=== PATIENT | male | born 1970 | race Caucasian/White ===

== ENCOUNTER 2020-07-31 07:11 | Day surgery (SDC) | payer BC ==
[~2020-07-31] VITALS: Ht 182.9 cm; Wt 108.6 kg
[~2020-07-31 07:11] MED LIST: ALL DAY ALLERGY10 M3 PO; FENOFIBRATE54 MG PO; FISH OIL 1,0001 EAC3 PO; LEXAPRO10 MG PO; METFORMIN HCL500 M3 PO; SIMVASTATIN40 MG PO; VALTREX500 MG PO; VITAMIN D250 MC1 PO; ZESTRIL2.5 MG PO
--- NOTE | 2020-07-31 09:01 | NUR ---
07/31/20 0901 Gabriela Hernandez 0838 PATIENT ARRIVES TO PACU SLEEPING. RESP EVEN AND UNLABORED, NC AT 2 LITERS. PATIENT AWAKENS WITH VERBAL STIMULI, DENIES PAIN OR NAUSEA. BACK TO SLEEP WHEN NOT STIMULATED. PASSING GAS.
--- NOTE | 2020-07-31 09:42 | OR ---
[facility] [address] [place], [place] [address] Signed DATE OF OPERATION: 07/31/2020 SURGEON: Cristopher Viramontes MD PREOPERATIVE DIAGNOSIS: Screening. POSTOPERATIVE DIAGNOSES: 1. A 3-5 mm polyps at 65 cm, transverse colon, 110 cm, 30 cm, 10 cm, and 5 cm. 2. Minimal internal hemorrhoids. PROCEDURE: Colonoscopy without biopsy. ESTIMATED BLOOD LOSS: None. INDICATIONS: Soren is a 50-year-old gentleman, asked to see me for his initial screening colonoscopy. In the office, I gave him a pamphlet on colonoscopy, and we looked at that together along with the risks including, but not limited to gas bloating, crampy abdominal pain, bleeding, perforation requiring surgery, and missed diagnosis. We also discussed the need for IV conscious sedation. He had expressed understanding and wished to proceed. PROCEDURE NOTE: Soren was taken into our endoscopy suite and placed in the left lateral decubitus position. He was given a total of 150 mcg of fentanyl and 7 mg of Versed. A digital rectal exam was performed and this was unremarkable. The adult colonoscope was introduced and advanced all around into the cecum. It took a little extra sedation and abdominal compression in order to advance the scope. His prep was quite good. We could easily see his appendiceal orifice and the ileocecal valve. The scope was then slowly withdrawn. The above-mentioned polyps were easily removed with the help of hot biopsy forceps. No diverticulosis noted. Upon retroflexion of scope, he has very minimal internal hemorrhoid columns. After this, the gas was suctioned out. The colonoscope removed. Soren tolerated the procedure quite well. RECOMMENDATIONS: I will see Soren back in my office in 7 to 14 days to review his results. Electronically Signed By: CRISTOPHER VIRAMONTES MD 07/31/20 0942 PATIENT NAME: MIGUELANGEL NAMSOREN OPERATIVE REPORT DATE OF : 66 REPORT #: [id number] PHYSICIAN: CRISTOPHER VIRAMONTES MD PCP: ASUNCION JEFFERS MD REPORT IS CONFIDENTIAL AND NOT TO BE RELEASED WITHOUT AUTHORIZATION [address] [address] Signed MD SHANKAR Collado/PETEY /[id number] cc: Cristopher Viramontes MD Copies: CRISTOPHER VIRAMONTES MD ~ Electronically Signed By: CRISTOPHER VIRAMONTES MD 07/31/20 0942 PATIENT NAME: MIGUELANGELSOREN Mcdonald JR OPERATIVE REPORT DATE OF : 66 REPORT #: [id number] PHYSICIAN: CRISTOPHER VIRAMONTES MD PCP: ASUNCION JEFFERS MD REPORT IS CONFIDENTIAL AND NOT TO BE RELEASED WITHOUT AUTHORIZATION
--- NOTE | 2020-07-31 13:25 | NUR ---
PT ALERT, ORIENTED AND STATED HE WAS ENJOYING TH PEACE AND QUIET WHILE HE WAITED. FIRST SCOPE, SEEMED TO DEAL WITH PREP WELL. PT THANKED ME FOR THE VISIT. GAVE BLESSING
--- NOTE | 2020-08-02 16:48 | PATH ---
[facility] [address] [place], [place] [address] Signed SPECIMEN(S): A DESCENDING COLON POLYP AT 65 CM SPECIMEN(S): B TRANSVERSE COLON POLYP SPECIMEN(S): C COLON POLYP AT 110 CM SPECIMEN(S): D SIGMOID POLYP AT 30 CM SPECIMEN(S): E RECTAL POLYP AT 10 CM SPECIMEN(S): F RECTAL POLYP ST 5 CM SPECIMEN SOURCE: A. DESCENDING COLON POLYP AT 65 CM B. TRANSVERSE COLON POLYP C. COLON POLYP AT 110 CM D. SIGMOID POLYP AT 30 CM E. RECTAL POLYP AT [address] 5 CM CLINICAL HISTORY: Screening. MICROSCOPIC DESCRIPTION: Histologic sections of all submitted blocks are examined by light microscopy. These findings, together with the gross examination, support the pathologic diagnosis. FINAL PATHOLOGIC DIAGNOSIS: A. Colon, descending, polyp at 65 cm, polypectomy: - Tubular adenoma. - Negative for high-grade dysplasia or malignancy. B. Colon, transverse, polyp, polypectomy: - Tubular adenoma. - Negative for high-grade dysplasia or malignancy. C. Colon, polyp at 110 cm, polypectomy: - Tubular adenoma. - Negative for high-grade dysplasia or malignancy. D. Colon, sigmoid, polyp at 30 cm, polypectomy: - Hyperplastic polyp. - Negative for dysplasia or malignancy. E. Rectum, polyp at 10 cm, polypectomy: - Hyperplastic polyp. - Negative for dysplasia or malignancy. F. Rectum, polyp at 5 cm, polypectomy: - Rectal mucosa with no histopathologic abnormality, see Comment. PATIENT NAME: ROYA MEANS JR PATHOLOGY DATE OF : 66 REPORT #: [id number] PHYSICIAN: JESUS MANUEL JAMES PCP: ASUNCION JEFFERS MD REPORT IS CONFIDENTIAL AND NOT TO BE RELEASED WITHOUT AUTHORIZATION [facility] [address] [place], [place] [address] Signed COMMENT: Regarding specimen E: Multiple additional deeper levels were examined. NAL:cml:C2NR GROSS DESCRIPTION: Six specimens are received in six containers labeled with "PK". A. The specimen, labeled "PK," and designated on the requisition "descending colon polyp at 65 cm," is received in formalin and consists of one piece of pink-sanabria tissue (0.4 x 0.3 x 0.2 cm). The specimen is submitted entirely in cassette A1. B. The specimen, labeled "PK," and designated on the requisition "transverse polypectomy," is received in formalin and consists of one fragment of pink-sanabria tissue (0.3 x 0.3 x 0.2 cm). The specimen is submitted entirely in cassette B1. C. The specimen, labeled "PK," and designated on the requisition "colon polypectomy at 110 cm," is received in formalin and consists of one fragment of pink-sanabria tissue (0.3 x 0.2 x 0.2 cm). The specimen is submitted entirely in cassette C1. D. The specimen, labeled "PK," and designated on the requisition "sigmoid polypectomy at 30 cm," is received in formalin and consists of one fragment of pink-sanabria tissue (0.3 x 0.3 x 0.3 cm). The specimen is submitted entirely in cassette D1. E. The specimen, labeled "PK," and designated on the requisition "rectal polypectomy at 10 cm," is received in formalin and consists of two fragments of pink-sanabria tissue (0.5 x 0.3 x 0.2 cm in aggregate). The specimen is submitted entirely in cassette E1. F. The specimen, labeled "PK," and designated on the requisition "rectal polypectomy at 5 cm," is received in formalin and consists of one fragment of pink-sanabria tissue (0.4 x 0.3 x 0.2 cm). The specimen is submitted entirely in cassette F1. AC (under the direct supervision of a pathologist) The Gross Description was prepared using a voice recognition system. The report was reviewed for accuracy; however, sound-alike word errors, addition and/or deletions may occur. If there is any question about this report, please contact Client Services. PERFORMING LABORATORY: The technical component was performed by [email or web address] [address] (Reliability Specialist: Arleen Lauren MD; CLIA# [id number]). [facility] [address] [facility]. 107, PATIENT NAME: ROYA MEANS JR PATHOLOGY DATE OF : 66 REPORT #: [id number] PHYSICIAN: JESUS MANUEL JAMES PCP: ASUNCION JEFFERS MD REPORT IS CONFIDENTIAL AND NOT TO BE RELEASED WITHOUT AUTHORIZATION [facility] [address] [facility] [place] [address] Signed [place] [id number] (CLIA# [id number]). Diagnostician: Lou Barker MD Pathologist Electronically Signed 08/02/2020 Copies: ~ PATIENT NAME: ROYA MEANS JR PATHOLOGY DATE OF : 66 REPORT #: [id number] PHYSICIAN: JESUS MANUEL PATHOLOGY PCP: ASUNCION JEFFERS MD REPORT IS CONFIDENTIAL AND NOT TO BE RELEASED WITHOUT AUTHORIZATION
== END 2020-07-31 10:55 | disposition home or self-care (01) ==
LOC: DS 07:11 → OPS 07:11 → DS 08:15 → OPS 08:15
PROVIDERS: ATTEND Colon & Rectal Surgery
PROC: 0DBH8ZX Excision of Cecum, Via Natural or Artificial Opening Endoscopic, Diagnostic (ICD-10-PCS; principal; 2020-07-31 08:15)
DX: D12.4 Benign neoplasm of descending colon (principal); D12.3 Benign neoplasm of transverse colon; K62.1 Rectal polyp; K64.8 Other hemorrhoids; E11.9 Type 2 diabetes mellitus without complications; F41.8 Other specified anxiety disorders; E78.5 Hyperlipidemia, unspecified; Z88.0 Allergy status to penicillin
CPT/HCPCS: 99153; G0500; J2250; J3010